=== PATIENT | male | born 1990 | race Caucasian/White ===

== ENCOUNTER → 2018-08-21 15:04 | Outpatient (CLI) | payer MEDICAID, SELFPAY ==
[2018-08-21 15:36] LABS: Bacteria 0 SEEN /hpf (None Seen); Mucous, Urine 0 SEEN /hpf (<or=2+); Red Blood Cells-Urine 0 SEEN /hpf (0-5); Squamous Epithelial Cells - UA 0 SEEN /hpf (0-5)
[2018-08-21 17:01] LABS: Color, Urine Yellow (Yellow); Glucose, Dipstick Normal (Normal); Ketone-Dipstick Negative (Negative); Leukocyte Esterase-Dipstick Negative /ul (Negative); Nitrite-Dipstick Negative (Negative); Occult Blood-Urine Negative /ul (Negative); Protein-Dipstick Negative (Negative); Specific Gravity, Urine 1.025 (1.002-1.030); Urine Bilirubin Dipstick Negative (Negative); Urine Clarity Clear (Clear); Urine Urobilinogen Normal (Normal)
[2018-08-21 17:33] LABS: White Blood Cells 0-5 SEEN /hpf (0-5)
[2018-08-21 17:46] LABS: HIV - WCH Non-Reactive (Nonreactive)
[2018-08-21 18:03] LABS: Chlamydia Trachomatis by PCR POSITIVE (Negative)
[2018-08-21 18:04] LABS: Probe Check PASS
[2018-08-22 07:44] LABS: Neisserai gonorrhoeae by PCR Negative (Negative); Sample Adequacy Control PASS; Specimen Processing Control PASS
[2018-08-23 11:19] LABS: HEPATITIS B SURFACE AG Negative (Negative); Hepatitis A AB, Total Negative (Negative); Hepatitis B Core AB IgM Negative (Negative); Hepatitis B Core Ab Total Negative (Negative); Hepatitis C Ab >11.0 s/co ratio (0.0-0.9)
[2018-08-23 11:26] LABS: Hep B Surface Antibodies Reactive (.)
[2018-08-23 11:48] LABS: Hepatitis A IgM Antibody Negative (Negative)
[2018-08-25 02:33] LABS: Rapid Plasmin Reagin (RPR) NONREACTIVE (NONREACTIVE)
== END ==
PROVIDERS: Family Provider Internal Medicine; PCP Internal Medicine; Referring Provider Nurse Practitioner Family; Visit Provider Nurse Practitioner Family
DX: Z72.51 High risk heterosexual behavior (principal); Z20.2 Contact with and (suspected) exposure to infections with a predominantly sexual mode of transmission; F19.10 Other psychoactive substance abuse, uncomplicated
CPT/HCPCS: 36415; 81001; 86592; 86703; 86704; 86705; 86706; 86708; 86709; 86803; 87340; 87491; 87591

== ENCOUNTER 2018-08-23 13:56 | Emergency (ER) | payer MEDICAID, SELFPAY ==
[2018-08-23 13:57] VITALS: BP 149/76; PULSE 95; RESP 16; TEMP 36.6; O2SAT 98; BMI 20.1
--- NOTE | 2018-08-23 14:29 | ED.VISSUMM ---
- ER Visit Summary Date of Service: 08/23/18 Chief Complaint: Rectal bleeding History of Present Illness: The patient is a 27 M who presents with rectal bleeding that began today. Patient thinks he has a hemorrhoid. Patient states he has been having bleeding with his bowel movements. Patient admits to some pain in the rectal area. Patient denies any nausea vomiting. Patient denies any abdominal pain. Patient denies any fevers or chills. Patient denies any other symptoms. Physical Examination: Vital signs are stable. Patient is afebrile. Patient is in no acute distress. Oral mucosa is pink and moist. Neck is supple. Trachea is midline. There is no JVD noted. Heart was regular rate and rhythm. Lungs are clear and equal bilateral. There is good respiratory effort noted. Abdomen is soft. Bowel sounds are normal. There is no tenderness noted. There is no guarding noted. Rectal exam showed an external hemorrhoid with some dried blood in the rectal area. There is no active bleeding noted. There is no tenderness noted. The remaining physical exam is within normal limits. Emergency Department Course and Treatment: Patient was given a prescription for Anusol HC suppositories. Patient was instructed to follow-up with his primary care physician in 5-7 days. Patient understood and was agreeable with the plan. All questions were answered. Disposition: Discharged home Impression: External hemorrhoid This note was generated with [employer] dictation software. It may contain incorrect words, spelling, and punctuation that were not noted in review of the chart prior to signing ED Disposition - Plan for ED Patient: Disposition: Home or Assisted Living Chief Complaint: Other, Pain/Inj Diagnosis: External hemorrhoid, bleeding Instructions: ED Hemorrhoids Prescriptions: Hydrocortisone [Anusol Hc] 25 mg RECTAL BID PRN PRN #10 suppos. PRN Reason: Hemorrhoids Referrals: Nighat Scott MD [Primary Care Provider] -
== END 2018-08-23 14:44 | disposition home or self-care (01) ==
PROVIDERS: Emergency Provider Emergency Medicine; Family Provider Internal Medicine; PCP Internal Medicine
DX: K64.4 Residual hemorrhoidal skin tags (principal); J02.9 Acute pharyngitis, unspecified; F17.200 Nicotine dependence, unspecified, uncomplicated
CPT/HCPCS: 99282

== ENCOUNTER 2018-09-19 04:56 | Emergency (ER) | payer MEDICAID, SELFPAY ==
[2018-09-19 04:58] VITALS: BP 131/79; PULSE 94; RESP 14; TEMP 36.6; O2SAT 95
[2018-09-19] MEDS: Naloxone 0.4 MG/ML Syringe IV (05:42)
--- NOTE | 2018-09-19 05:44 | ED.VISSUMM ---
- ER Visit Summary Date of Service: 09/19/18 Chief Complaint: Decreased level of consciousness History of Present Illness: The patient is a 27 M who is at [facility]. Patient reports that he went to a ball for [employer]. However, he was around good, sober people. He states that he did not use heroin that I know of. When asked what this means patient reports that he had a package of cigarettes delivered to him. He states that 5 of the cigarettes did not appear normal. He went out and smoked 1. Went back in and was talking to his roommate and next thing he knew he woke up with cough surrounding me. On review of symptoms patient complains of a sore throat 6 out of 10 severity and mild shortness of breath. States that he feels lightheaded. He does admit to feeling high on opiates. Physical Examination: Vitals: Stable. Afebrile. General: Appears intoxicated. Eyelids are half closed. He nods off during conversation. Pupils are small, but not pinpoint. Well-nourished and well-developed. Head: Normocephalic atraumatic. Neck: Supple, no lymphadenopathy. No JVD. Nontender. Cardiovascular: Regular rate and rhythm. No murmurs. Respiratory: No respiratory distress. Clear to auscultation bilaterally. Abdominal: Soft, nontender, nondistended, normal bowel sounds. No guarding, rebound, or peritoneal signs. Back: Nontender. Extremities: Nontender, no edema. Skin: Normal color, no rash. Neurologic: Alert and oriented ?3. Cranial nerves II through XII are intact. Normal strength and sensation. Psych: Normal affect. Test Results: [] Emergency Department Course and Treatment: Patient had an IV placed. He was given 0.4 mg of Narcan IV and is much more awake and alert. Treatment Plan: At this point the patient's episode is clearly from opiate use. I cannot determine whether this was intentional or not. He will be sent back to the [facility] with instructions to not use. Disposition: Discharged in improved condition. Impression: 1. Opiate abuse. This note was generated with [employer] dictation software. It may contain incorrect words, spelling, and punctuation that were not noted in review of the chart prior to signing ED Disposition - Plan for ED Patient: Chief Complaint: General Illness Instructions: ED Narcotic Abuse Referrals: Care Physician,No Primary [Primary Care Provider] -
[2018-09-19] MEDS: 0.9% Normal Saline 1,000 ML 1000 ML IV (05:45)
--- NOTE | 2018-09-19 05:47 | ED.DCSUM_ITS ---
- ER Visit Summary Date of Service: 09/19/18 Chief Complaint: Decreased level of consciousness History of Present Illness: The patient is a 27 M who is at [facility]. Patient reports that he went to a ball for [employer]. However, he was around good, sober people. He states that he did not use heroin that I know of. When asked what this means patient reports that he had a package of cigarettes delivered to him. He states that 5 of the cigarettes did not appear normal. He went out and smoked 1. Went back in and was talking to his roommate and next thing he knew he woke up with cough surrounding me. On review of symptoms patient complains of a sore throat 6 out of 10 severity and mild shortness of breath. States that he feels lightheaded. He does admit to feeling high on opiates. Physical Examination: Vitals: Stable. Afebrile. General: Appears intoxicated. Eyelids are half closed. He nods off during conversation. Pupils are small, but not pinpoint. Well-nourished and well- developed. Head: Normocephalic atraumatic. Neck: Supple, no lymphadenopathy. No JVD. Nontender. Cardiovascular: Regular rate and rhythm. No murmurs. Respiratory: No respiratory distress. Clear to auscultation bilaterally. Abdominal: Soft, nontender, nondistended, normal bowel sounds. No guarding, rebound, or peritoneal signs. Back: Nontender. Extremities: Nontender, no edema. Skin: Normal color, no rash. Neurologic: Alert and oriented ?3. Cranial nerves II through XII are intact. Normal strength and sensation. Psych: Normal affect. Test Results: [] Emergency Department Course and Treatment: Patient had an IV placed. He was given 0.4 mg of Narcan IV and is much more awake and alert. Treatment Plan: At this point the patient's episode is clearly from opiate use. I cannot determine whether this was intentional or not. He will be sent back to the [facility] with instructions to not use. Disposition: Discharged in improved condition. Impression: 1. Opiate abuse. This note was generated with [employer] dictation software. It may contain incorrect words, spelling, and punctuation that were not noted in review of the chart prior to signing ED Disposition - Plan for ED Patient: Chief Complaint: General Illness Instructions: ED Narcotic Abuse Referrals: Care Physician,No Primary [Primary Care Provider] -
[2018-09-19 06:36] VITALS: BP 118/69; PULSE 89; RESP 18; O2SAT 99
[2018-09-19] MEDS: Ondansetron 4 MG/2 ML Vial IV (06:55)
[2018-09-19 07:08] VITALS: BP 123/56; PULSE 91; RESP 15; O2SAT 99
== END 2018-09-19 07:18 | disposition home or self-care (01) ==
LOC: ED 05:42
PROVIDERS: Emergency Provider Emergency Medicine
DX: T40.601A Poisoning by unspecified narcotics, accidental (unintentional), initial encounter (principal); Y92.9 Unspecified place or not applicable; Z86.19 Personal history of other infectious and parasitic diseases; F17.200 Nicotine dependence, unspecified, uncomplicated
CPT/HCPCS: 96361; 96374; 96375; 99285; J7030; J2310; J2405

== ENCOUNTER 2021-03-14 20:05 | Observation (INO) | payer MEDICAID, SELFPAY ==
[2021-03-14 20:06] VITALS: BP 122/91; PULSE 94; RESP 15; TEMP 35.7; O2SAT 97; BMI 23.2
--- NOTE | 2021-03-14 20:33 | EX.ED.SAOD ---
HPI History of Present Illness Chief Complaint: Substance Abuse Narrative Narrative: 30-year-old male with history of substance abuse and states currently he does methamphetamine and heroin. Last use was 2 hours ago. He states he has been doing this for years. His last detox was at [facility]. Patient has no symptoms currently. He wishes to be admitted for detox. [facility] Medical History Hepatitis C History of drug abuse Home Medications NK 03/14/21 [History Last Taken Unknown] Allergy/AdvReac Type Severity Reaction Status Date / Time No Known Allergies Allergy Verified 03/14/21 20:08 Family History Mother Anxiety Alcoholism Arthritis Depression Social History Smoking Status: Current every day smoker tobacco type: cigarettes substance use type: marijuana, crack/cocaine, heroin and methamphetamine frequency: daily ROS ROS ED Constitutional Constitutional ED: Denies chills, fever(s) or subjective Eyes Eyes: Denies blurry vision or change in vision ENT ENT ED: Denies ear pain, rhinorrhea or sore throat Cardiovascular Cardiovascular: Denies chest pain or palpitations Respiratory/Chest Respiratory/Chest: Denies cough, dyspnea or sputum Gastrointestinal Gastrointestinal: Denies abdominal pain, nausea or vomiting Genitourinary Genitourinary ED: Denies dysuria or urinary frequency Musculoskeletal Musculoskeletal: Denies arthralgias or myalgias Integumentary Denies abscess or rash Neurologic Neurologic: Denies headache(s), paresthesias or weakness Psychiatric Psychiatric: Denies anxiety or depression EXAM Physical Exam Const Vital Signs: 03/14/21 20:06 Temperature 96.3 F L Temperature Source Temporal Pulse Rate 94 Respiratory Rate 15 Blood Pressure 122/91 H Blood Pressure Mean 101 Pulse Ox 97 Oxygen Delivery Method Room Air General Appearance ED: NAD HEENT Reports moist mucous membranes atraumatic Eyes PERRL and EOMs intact bilaterally General Eye ED: Negative for scleral icterus Resp normal respiratory effort and clear to auscultation bilaterally Cardio regular rate and regular rhythm Neuro oriented x3 Sensorium / Orientation: alert and oriented to person Psych mental status grossly normal and thought process normal Skin Lesions: no lesions Rashes: no rashes MDM MDM MDM Narrative Medical decision making narrative: Patient presenting for detox. His lab work-up is unremarkable. Urine drug screen is positive for opioids, amphetamines, cocaine, cannabinoids. Patient required no medication in the ED. He has been stable. Discussed with hospitalist he was in stabilized condition for detox. Impression: 1. Opioid abuse 2. Cocaine abuse 3. Methamphetamine abuse Lab Data Attestation: I reviewed the patient's lab results. Labs: Laboratory Results - last 24 hr 03/14/21 03/14/21 03/14/21 20:18 20:57 20:57 WBC 6.4 RBC 4.93 Hgb 13.9 Hct 42.5 MCV 86.2 MCH 28.2 MCHC 32.7 RDW Std Deviation 42.1 RDW Coeff of Shaka 13.5 Plt Count 145 L MPV 10.5 Immature Gran % (Auto) 0.200 Neut % (Auto) 66.5 Lymph % (Auto) 21.7 Wharton % (Auto) 10.8 H Eos % (Auto) 0.5 Baso % (Auto) 0.3 Absolute Neuts (auto) 4.3 Absolute Lymphs (auto) 1.39 Nucleated RBC % 0 Platelet Estimate ADEQUATE RBC Morphology N CHROM Anisocytosis RARE Sodium 140 Potassium 3.4 L Chloride 106 Carbon Dioxide 27.0 Anion Gap 7 BUN 12 Creatinine 0.90 Estim Creat Clear Calc 130.15 Est GFR (MDRD) Af Amer 128 Est GFR (MDRD) Non-Af 106 BUN/Creatinine Ratio 13.3 Glucose 103 Calcium 8.5 Total Bilirubin 0.50 AST 40 H ALT 76 H Alkaline Phosphatase 159 H Total Protein 7.2 Albumin 3.5 Globulin 3.7 Albumin/Globulin Ratio 0.9 Urine Opiates Screen POSITIVE H Urine Methadone Screen NEGATIVE Ur Barbiturates Screen NEGATIVE Ur Phencyclidine Scrn NEGATIVE Ur Amphetamines Screen POSITIVE H U Methamphetamin-MDMA POSITIVE H U Benzodiazepines Scrn NEGATIVE Urine Cocaine Screen POSITIVE H U Cannabinoids Screen POSITIVE H Ur Drug Screen Comment Ethyl Alcohol 03/14/21 21:14 WBC RBC Hgb Hct MCV MCH MCHC RDW Std Deviation RDW Coeff of Shaka Plt Count MPV Immature Gran % (Auto) Neut % (Auto) Lymph % (Auto) Wharton % (Auto) Eos % (Auto) Baso % (Auto) Absolute Neuts (auto) Absolute Lymphs (auto) Nucleated RBC % Platelet Estimate RBC Morphology Anisocytosis Sodium Potassium Chloride Carbon Dioxide Anion Gap BUN Creatinine Estim Creat Clear Calc Est GFR (MDRD) Af Amer Est GFR (MDRD) Non-Af BUN/Creatinine Ratio Glucose Calcium Total Bilirubin AST ALT Alkaline Phosphatase Total Protein Albumin Globulin Albumin/Globulin Ratio Urine Opiates Screen Urine Methadone Screen Ur Barbiturates Screen Ur Phencyclidine Scrn Ur Amphetamines Screen U Methamphetamin-MDMA U Benzodiazepines Scrn Urine Cocaine Screen U Cannabinoids Screen Ur Drug Screen Comment Ethyl Alcohol < 3.0 Discharge Plan Disposition Disposition: Acute Care Hospital [facility] Discharge Date/Time: 03/14/21 23:33
[2021-03-14 21:10] LABS: Absolute Lymphocyte Count 1.39 X10^3/uL (0.83-4.51); Absolute Neutrophil Count 4.3 X10^3/uL (2.0-7.7); Basophil# 0.02 X10^3/uL; Basophil% 0.3 % (0-1); Differential Indicated SCAN CRITERIA MET; Eosinophil# 0.03 X10^3/uL; Eosinophils% 0.5 % (0-5); Hematocrit 42.5 % (40-54); Hemoglobin 13.9 g/dL (13.0-16.5); Lymphocyte # 1.39 X10^3/ul (0.83-4.51); Lymphocyte % 21.7 % (19-41); Mean Corp Hgb Conc 32.7 g/dL (32-36); Mean Corpuscular Hgb 28.2 pg (27.0-32.0); Mean Corpuscular Volume 86.2 fL (80-94); Mean Platelet Vol. 10.5 fl (6.2-12.0); Monocyte# 0.69 X10^3/uL; Monocyte% 10.8 % (0-10); NRBC Flagged by Analyzer 0 % (0-5); Neutrophil # 4.26 X10^3/uL (2.7-7.7); Neutrophil % 66.5 % (47-70); POSITIVE COUNT YES; Platelet Count 145 K/mm3 (150-450); RBC Distribution Width CV 13.5 % (11.6-14.6); RBC Distribution Width SD 42.1 fl (35.1-43.9); Red Blood Count 4.93 M/mm3 (4.6-6.2); White Blood Count 6.4 K/mm3 (4.4-11.0)
[2021-03-14 21:22] LABS: Albumin, Serum 3.5 g/dL (3.2-5.0); BUN 12 mg/dL (7-18); BUN/Creat Ratio 13.3 RATIO (10-20); EST Glomerular Filtration Rate 106 mL/min (>60); Est Glom Filt Rate - Afr Amer 128 mL/min (>60); Estimated Creatinine Clearance 130.15 ml/min; Globulin 3.7 g/dL (2.2-4.2); Glucose 103 mg/dL (74-106); Protein, Total 7.2 g/dL (6.4-8.2)
[2021-03-14 21:23] LABS: ALB/GLOB Ratio 0.9 RATIO (0.9-2.4); AST(SGOT) 40 U/L (15-37); Alanine Aminotransfer ALT/SGPT 76 U/L (16-61); Alkaline Phosphatase 159 U/L (45-117); Anion Gap 7 (5-15); Calcium,Total 8.5 mg/dL (8.5-10.1); Chloride 106 mmol/L (98-107); Potassium 3.4 mmol/L (3.5-5.1); Sodium Level 140 mmol/L (136-145)
[2021-03-14 21:32] LABS: Amphetamine Urine VISTA POSITIVE (<1000 ng/mL); Barbiturate Urine VISTA NEGATIVE (< 200 ng/mL); Benzodiazepine Urine VISTA NEGATIVE (< 200 ng/mL); Cocaine Urine VISTA POSITIVE (< 300 ng/mL); Ecstacy Urine VISTA POSITIVE (< 500 ng/mL); Methadone Urine VISTA NEGATIVE (< 300 ng/mL); PCP Urine VISTA NEGATIVE (< 25 ng/mL); THC Urine VISTA POSITIVE (< 50 ng/mL); Vista UDS pH Range 5
[2021-03-14 21:32] LABS: Anisocytosis RARE; Platelet Estimate ADEQUATE (ADEQ); Red Cell Morphology N CHROM NORMAL (NORM C&C)
[2021-03-14 21:49] LABS: Alcohol, Blood (Medical)-Serum < 3.0 mg/dL
--- NOTE | 2021-03-14 23:08 | HP.PCM_ITS ---
Documented by User: Gricelda Vazquez NP-C 03/14/21 23:15 HPI - General General Date of Admission: 03/14/21 HPI Narrative CHERYL TALBERT, is a 30 M who presents with a desire to detox from heroin and methamphetamines. Patient states that he also uses marijuana daily. Patient reports a daily intravenous usage of 1 g of both heroin and methamphetamine. Patient also reports smoking tobacco. Patient is alert and oriented but lethargic, states last use was approximately 5 hours ago. [facility] Medical History Hepatitis C History of drug abuse Home Medications NK 03/14/21 [History Last Taken Unknown] Allergy/AdvReac Type Severity Reaction Status Date / Time No Known Allergies Allergy Verified 03/14/21 20:08 Family History Mother Anxiety Alcoholism Arthritis Depression Social History Smoking Status: Current every day smoker tobacco type: cigarettes substance use type: marijuana, crack/cocaine, heroin and methamphetamine frequency: daily ROS Constitutional Constitutional: Reports chills; Denies anorexia, fatigue or weakness Cardiovascular Cardiovascular: Denies chest pain, edema or palpitations Respiratory/Chest Respiratory/Chest: Denies cough, shortness of breath at rest or shortness of breath with exertion Gastrointestinal Gastrointestinal: Denies abdominal pain, constipation, diarrhea, nausea or vomiting Genitourinary Genitourinary: Denies dysuria Musculoskeletal Musculoskeletal: Denies back pain, extremity pain, joint pain or joint stiffness Integumentary Integumentary: Denies dry skin Neurologic Neurologic: Denies abnormal gait, abnormal speech, confusion or focal weakness Psychiatric Psychiatric: Denies anxiety or depression Endocrine Endocrinology: Denies change in body appearance Hematologic/Lymphatic Hematologic/Lymphatic: Denies easy bleeding or easy bruising Vital Signs Vital Signs Vital Signs: 03/14/21 20:06 Temperature 96.3 F L Temperature Source Temporal Pulse Rate 94 Respiratory Rate 15 Blood Pressure 122/91 H Blood Pressure Mean 101 Pulse Ox 97 Oxygen Delivery Method Room Air Weight Weight: 166 lb 10.711 oz Body Mass Index (BMI) 23.2 Physical Exam Const oriented x3 General Appearance: cooperative Orientation / Consciousness: lethargic HEENT normocephalic and head/scalp atraumatic Eyes conjunctivae normal and no scleral icterus Neck no lymphadenopathy, supple and no JVD General: trachea midline Resp normal respiratory effort, normal air movement and clear to auscultation bilat erally Cardio regular rate, regular rhythm, S1 normal heart sound and S2 normal heart sound GI normal to inspection, nondistended, normoactive bowel sounds, soft to palpation and non-tender Extremity normal capillary refill and no clubbing, cyanosis or edema General Extremity: no tenderness to palpation of joints or extremities Skin General Skin Exam: no breakdown and turgor normal Lesions: no lesions Rashes: no rashes Neuro no focal motor deficits and no sensory deficits noted Speech: speech normal Motor Exam: strength 5/5 throughout Psych thought process normal and cooperative Appearance: appropriate Results Lab / Micro Data Result Diagrams: 03/14/21 20:57 03/14/21 20:57 Labs: Laboratory Results - last 24 hr 03/14/21 03/14/21 03/14/21 20:18 20:57 20:57 WBC 6.4 RBC 4.93 Hgb 13.9 Hct 42.5 MCV 86.2 MCH 28.2 MCHC 32.7 RDW Std Deviation 42.1 RDW Coeff of Shaka 13.5 Plt Count 145 L MPV 10.5 Immature Gran % (Auto) 0.200 Neut % (Auto) 66.5 Lymph % (Auto) 21.7 Blair % (Auto) 10.8 H Eos % (Auto) 0.5 Baso % (Auto) 0.3 Absolute Neuts (auto) 4.3 Absolute Lymphs (auto) 1.39 Nucleated RBC % 0 Platelet Estimate ADEQUATE RBC Morphology N CHROM Anisocytosis RARE Sodium 140 Potassium 3.4 L Chloride 106 Carbon Dioxide 27.0 Anion Gap 7 BUN 12 Creatinine 0.90 Estim Creat Clear Calc 130.15 Est GFR (MDRD) Af Amer 128 Est GFR (MDRD) Non-Af 106 BUN/Creatinine Ratio 13.3 Glucose 103 Calcium 8.5 Total Bilirubin 0.50 AST 40 H ALT 76 H Alkaline Phosphatase 159 H Total Protein 7.2 Albumin 3.5 Globulin 3.7 Albumin/Globulin Ratio 0.9 Urine Opiates Screen POSITIVE H Urine Methadone Screen NEGATIVE Ur Barbiturates Screen NEGATIVE Ur Phencyclidine Scrn NEGATIVE Ur Amphetamines Screen POSITIVE H U Methamphetamin-MDMA POSITIVE H U Benzodiazepines Scrn NEGATIVE Urine Cocaine Screen POSITIVE H U Cannabinoids Screen POSITIVE H Ur Drug Screen Comment Ethyl Alcohol 03/14/21 21:14 WBC RBC Hgb Hct MCV MCH MCHC RDW Std Deviation RDW Coeff of Shaka Plt Count MPV Immature Gran % (Auto) Neut % (Auto) Lymph % (Auto) Blair % (Auto) Eos % (Auto) Baso % (Auto) Absolute Neuts (auto) Absolute Lymphs (auto) Nucleated RBC % Platelet Estimate RBC Morphology Anisocytosis Sodium Potassium Chloride Carbon Dioxide Anion Gap BUN Creatinine Estim Creat Clear Calc Est GFR (MDRD) Af Amer Est GFR (MDRD) Non-Af BUN/Creatinine Ratio Glucose Calcium Total Bilirubin AST ALT Alkaline Phosphatase Total Protein Albumin Globulin Albumin/Globulin Ratio Urine Opiates Screen Urine Methadone Screen Ur Barbiturates Screen Ur Phencyclidine Scrn Ur Amphetamines Screen U Methamphetamin-MDMA U Benzodiazepines Scrn Urine Cocaine Screen U Cannabinoids Screen Ur Drug Screen Comment Ethyl Alcohol < 3.0 Assessment & Plan Assessment/Plan (1) Opiate abuse, continuous: (2) Methamphetamine abuse: (3) Nicotine abuse: (4) Marijuana abuse: PLAN: 1. Opiate abuse -Admit to [facility] as part of the rape program -Buprenorphine taper ordered per protocol along with supportive medications for withdrawal symptoms -Vital signs per protocol -Regular diet -Case management consulted for coordination with [facility] for outpatient follow-up 2. Methamphetamine abuse -See #1 3. Hypokalemia -Potassium chloride 40 mEq p.o. x1 ordered 4. Marijuana abuse 5. Nicotine abuse -NicoDerm patch ordered DVT prophylaxis-no pharmacological prophylaxis indicated This patient was seen by MAITE Nur under the supervision of Dr. Salamanca. Documented by User: Dr. Venkat Salamanca MD 03/15/21 00:17 HPI - General General Date of Admission: 03/14/21 [facility] Medical History Hepatitis C History of drug abuse Home Medications NK 03/14/21 [History Last Taken Unknown] Allergy/AdvReac Type Severity Reaction Status Date / Time No Known Allergies Allergy Verified 03/14/21 20:08 Family History Mother Anxiety Alcoholism Arthritis Depression Social History Smoking Status: Current every day smoker tobacco type: cigarettes substance use type: marijuana, crack/cocaine, heroin and methamphetamine frequency: daily Results Lab / Micro Data Result Diagrams: 03/14/21 20:57 03/14/21 20:57 Charges/Coding Addendum Addendum: Hospitalist note: I am seeing this patient in conjunction with Gricelda Vazquez. I independently seen and examined the patient. History and physical, laboratory data and imaging studies reviewed and I concur with above admission and treatment plan. Patient presented to the emergency room requesting admission for acute opiate withdrawal for medical stabilization. He has been using IV heroin as well as methamphetamines and occasionally, he used marijuana. He complains of body aches and pains, not feeling well with malaise as well as restlessness. He denied abdominal pain, cramps, nausea or vomiting. In the emergency department, his vital signs were stable. Routine blood work was remarkable for potassium of 3.4, otherwise normal. LFT revealed slight elevated liver transaminases. Urine drug screen is positive for opioids, vitamins, methamphetamines, cocaine and cannabinoids. Blood alcohol level was less than 3. He is being admitted for acute opioid withdrawal for medical stabilization. - Physical Exam General: Alert, Oriented x3, Cooperative, No apparent distress. HEENT: Atraumatic, PERRLA, EOMI. Neck: Supple, No JVD, Negative Carotid Bruits, Trachea Midline, Thyroid Normal. Lungs: Clear to auscultation, Normal air movement, No rhonchi, No wheeze, No rales. Cardiovascular: Regular rate, Regular Rhythm, Normal S1, Normal S2, PMI Normal. Abdomen: Bowel Sounds Present, Soft, Non Tender, Non-Distended, No Hepato-splenomegaly. Extremities: No clubbing, No cyanosis, No edema Skin: No rashes, No breakdown Neurological: Cranial nerves are intact, neuro grossly intact Vital Signs are stable. Assessment and plan: #1 acute opiate withdrawal: Admit to MedSurg floor, initiate opioid withdrawal protocol with Subutex taper, as needed Catapres, Bentyl, gabapentin, Vistaril, Imodium, methocarbamol, Zofran and trazodone, consult [facility] program. #2 elevated liver transaminases: In the setting of IV drug user. Will check hepatitis serology panel. #3 other chronic medical problems: Stable, continue current medications as above . This note was generated with [employer] dictation software. It may contain incorrect words, spelling, and punctuation that were not noted in checking the note before signing. Visit Charges Inpatient E&M: 27613 Init Hosp L2
[2021-03-14 23:10] VITALS: BP 98/60; PULSE 68; RESP 16; TEMP 37.1; O2SAT 97
[2021-03-14 23:42] VITALS: BP 129/67; PULSE 78; RESP 16; TEMP 37; O2SAT 98
[2021-03-14 23:45] VITALS: BMI 16.5
[2021-03-15] MEDS: Potassium Chloride Oral Tablet 20 MEQ 40 MEQ PO (00:44)
[2021-03-15 04:00] VITALS: BP 108/72; PULSE 74; RESP 17; TEMP 36.8; O2SAT 97
[2021-03-15 08:18] VITALS: BP 124/85; PULSE 78; RESP 18; TEMP 36.4; O2SAT 99
[2021-03-15] MEDS: Buprenorphine HCl 2 MG TAB.SUBL SL ×3 (08:20→23:24)
[2021-03-15] MEDS: Dicyclomine 10 MG Capsule 20 MG PO (11:25)
[2021-03-15] MEDS: hydrOXYzine PAM 25 MG Capsule 50 MG PO (11:26)
--- NOTE | 2021-03-15 12:02 | NT.THERAPY_ITS ---
Medical Nutrition Therapy - History Nutrition Services has been consulted to:: Manage nutrient details of diet order Current diet/nutrition support order:: Regular- 3 snacks per day. Ensure Enlive 120 ml 4x/day - Anthropometric Measurements Height:: 5 ft 11 in Weight:: 53.9 kg Body Mass Index (BMI):: 16.5 - Relevant Labs Relevant Labs:: Plt Count 145 K/mm3 (150-450) L 03/14/21 20:57 Stanly % (Auto) 10.8 % (0-10) H 03/14/21 20:57 Potassium 3.4 mmol/L (3.5-5.1) L 03/14/21 20:57 AST 40 U/L (15-37) H 03/14/21 20:57 ALT 76 U/L (16-61) H 03/14/21 20:57 Alkaline Phosphatase 159 U/L (45-117) H 03/14/21 20:57 - Assessment Food and Nutrient Intake: Reports wt hx When I get high my weight is 120# but when I'm sober I'm 193#. No wt hx per EMR- CBW 118.8 lbs. States When I get high I don't eat. I usually eat like one or two times per day, something like cereal. Denies chew/swallowing difficulty, N/V/D/C. Nutrition Focused Physical Exam: severe temporal scooping/depression, severe orbital region hollow look/depression, severe clavicle bone protrusion, moderate interosseous muscle of dorsal hand depression. - Nutrition Diagnosis: Clinical Problem Acute Disease or Injury Related Malnutrition Clinical Problem - Etiology: Severe malnutrition in the context of social/behavioral circumstances related to inadequate oral intake Clinical Problem - Signs/Symptoms: as evidenced by pt consuming </=50% energy intake compared to estimated needs as pt reports will not eat when using drugs, nutrition focused physical exam severe temporal scooping/depression, severe orbital region hollow look/depression, severe clavicle bone protrusion, moderate interosseous muscle of dorsal hand depression, and BMI 16.6. Status: Active Problem - Protein Calorie Malnutrition Evidence of Malnutrition Exists: Yes Severe Protein Calorie Malnutrition:: Social/Behavioral/Environmental - Nutrition Intervention Nutrition Prescription: 1998-6755 calories (30 calories/kg). 55-65 grams protein (1-1.2 g/kg). 6238-8603 ml fluid (30 ml/kg) - Food / Nutrient Delivery Interventions Nutrition support ordered as / adjusted to:: Continue [facility] - MNT Monitoring Active Nutrition Patient: Yes Nutrition Status: Requires Follow Up 3-5 Days
[2021-03-15 12:05] VITALS: BMI 16.5
[2021-03-15 13:00] VITALS: BP 132/94; PULSE 78; RESP 18; TEMP 37.1; O2SAT 99
--- NOTE | 2021-03-15 13:03 | PCM.PN.HOSP ---
Subjective Subjective Patient was admitted for opiate detox. He is complaining of generalized body aches and chills today. He denies any current diarrhea. He states he would like to talk to his mother but we explained that he is not able to do that right now given his admission for detox with regards to the parameters he agreed to prior to admission. She is also admitted for detox as well. Objective Data Objective Data Vital Signs: Vital Signs Temp Pulse Resp BP Pulse Ox 97.5 F L 78 18 124/85 H 99 03/15/21 08:18 03/15/21 08:18 03/15/21 08:18 03/15/21 08:18 03/15/21 08:18 Oxygen Delivery Method Room Air Weight: 53.9 kg Body Mass Index (BMI) 16.5 Intake & Output: Intake and Output for Last 24 Hours 03/13/21 03/14/21 03/15/21 23:59 23:59 23:59 Intake Total 480 / 480 Output Total 0 / 0 Balance 480 / 480 Lab / Micro Data Result Diagrams: 03/14/21 20:57 03/14/21 20:57 Labs: Laboratory Results - last 24 hr 03/14/21 03/14/21 03/14/21 20:18 20:57 20:57 WBC 6.4 RBC 4.93 Hgb 13.9 Hct 42.5 MCV 86.2 MCH 28.2 MCHC 32.7 RDW Std Deviation 42.1 RDW Coeff of Shaka 13.5 Plt Count 145 L MPV 10.5 Immature Gran % (Auto) 0.200 Neut % (Auto) 66.5 Lymph % (Auto) 21.7 [place] % (Auto) 10.8 H Eos % (Auto) 0.5 Baso % (Auto) 0.3 Absolute Neuts (auto) 4.3 Absolute Lymphs (auto) 1.39 Nucleated RBC % 0 Platelet Estimate ADEQUATE RBC Morphology N CHROM Anisocytosis RARE Sodium 140 Potassium 3.4 L Chloride 106 Carbon Dioxide 27.0 Anion Gap 7 BUN 12 Creatinine 0.90 Estim Creat Clear Calc 130.15 Est GFR (MDRD) Af Amer 128 Est GFR (MDRD) Non-Af 106 BUN/Creatinine Ratio 13.3 Glucose 103 Calcium 8.5 Total Bilirubin 0.50 AST 40 H ALT 76 H Alkaline Phosphatase 159 H Total Protein 7.2 Albumin 3.5 Globulin 3.7 Albumin/Globulin Ratio 0.9 Urine Opiates Screen POSITIVE H Urine Methadone Screen NEGATIVE Ur Barbiturates Screen NEGATIVE Ur Phencyclidine Scrn NEGATIVE Ur Amphetamines Screen POSITIVE H U Methamphetamin-MDMA POSITIVE H U Benzodiazepines Scrn NEGATIVE Urine Cocaine Screen POSITIVE H U Cannabinoids Screen POSITIVE H Ur Drug Screen Comment Ethyl Alcohol 03/14/21 21:14 WBC RBC Hgb Hct MCV MCH MCHC RDW Std Deviation RDW Coeff of Shaka Plt Count MPV Immature Gran % (Auto) Neut % (Auto) Lymph % (Auto) [place] % (Auto) Eos % (Auto) Baso % (Auto) Absolute Neuts (auto) Absolute Lymphs (auto) Nucleated RBC % Platelet Estimate RBC Morphology Anisocytosis Sodium Potassium Chloride Carbon Dioxide Anion Gap BUN Creatinine Estim Creat Clear Calc Est GFR (MDRD) Af Amer Est GFR (MDRD) Non-Af BUN/Creatinine Ratio Glucose Calcium Total Bilirubin AST ALT Alkaline Phosphatase Total Protein Albumin Globulin Albumin/Globulin Ratio Urine Opiates Screen Urine Methadone Screen Ur Barbiturates Screen Ur Phencyclidine Scrn Ur Amphetamines Screen U Methamphetamin-MDMA U Benzodiazepines Scrn Urine Cocaine Screen U Cannabinoids Screen Ur Drug Screen Comment Ethyl Alcohol < 3.0 Physical Exam Const alert, oriented x3 and no apparent distress Constitutional Narrative: Thin white male lying in bed, multiple tattoos, appears comfortable, nontoxic Exam Limitations: no limitations HEENT head/scalp atraumatic Head and Scalp: normocephalic Resp normal respiratory effort, no retractions, no use of accessory muscles and clear to auscultation bilaterally Cardio regular rate, regular rhythm, S1 normal heart sound, S2 normal heart sound, no murmurs, no rub, no gallops, no clicks and no JVD GI normal to inspection, nondistended, normoactive bowel sounds, soft to palpation, non-tender and non-distended Extremity normal to inspection and no clubbing, cyanosis or edema Peripheral Pulses: Yes pulses 2+ throughout Neuro oriented x3, moves all extremities and no focal motor deficits Sensorium / Orientation: awake and alert Speech: speech normal Psych Psych Narrative: Affect is flat Assessment & Plan Assessment/Plan (1) Opiate abuse, continuous: (2) Nicotine abuse: (3) Hepatitis C: PLAN: Acute opiate withdrawal -Suboxone taper -Supportive medications -Check HIV status -Patient with history of hepatitis C -180 consultation Thrombocytopenia -May be related to his hepatitis status -Count on admission was 145 -Unsure of baseline Hepatitis C -Transaminases are elevated -Mild thrombocytopenia -Patient will need to remain clean and follow-up as an outpatient for treatment Polysubstance abuse -Tox screen was positive for opiates, amphetamines, cocaine, and THC -Alcohol level is negative History of tobacco abuse -Recommend cessation -Nicotine patch DVT prophylaxis -Early ambulation protocol
[2021-03-15 16:57] VITALS: BP 112/66; PULSE 77; RESP 16; TEMP 36.9; O2SAT 99
[2021-03-15 20:30] VITALS: BP 114/74; PULSE 66; RESP 17; TEMP 37; O2SAT 100
[2021-03-15] MEDS: traZODone 100 MG Tablet PO (22:14)
[2021-03-15 23:22] VITALS: BP 112/69; PULSE 64; RESP 17; TEMP 36.7; O2SAT 98
[2021-03-15] MEDS: cloNIDine HCl 0.1 MG Tablet PO (23:27)
[2021-03-16 05:00] VITALS: BP 105/60; PULSE 69; RESP 16; TEMP 36.8; O2SAT 97
[2021-03-16] MEDS: Buprenorphine HCl 2 MG TAB.SUBL SL (06:38)
--- NOTE | 2021-03-16 09:28 | ADDICTION ---
This television writer met with PT to conduct ASAM, MSE, DUDIT assessments and to plan for d/c. All assessments completed/d/c plan completed, faxed to [facility] and placed in PT's chart. PT to d/c to his mother's home and plans to attend a diagnostic assessment/admit to RES treatment at [facility] on 03/17/21. PT amiable to plan.
--- NOTE | 2021-03-16 09:59 | ADDICTION ---
This creative writer met with PT to finalize d/c plan. PT to attend an assessment at [facility] on 03/19/21 @ 5pm. PT to d/c to home.
--- NOTE | 2021-03-16 10:44 | PCM.DC ---
Discharge Instructions Diet Discharge Diet: No restrictions Activity Discharge Activity: Return to Normal Activity and May Not Drive Weight Bearing Status: Weight bearing as tolerated Dressing / Incision Call your doctor if you observe: Fever of 101 or Higher, Coldness, Increased Pain, Numbness or Tingling, Change in Color, Inability to urinate, Inability to have a bowel movement, Shortness of breath, Dizziness, Fainting spells, Swelling in the ankles, Chest pain, Prolonged hiccupping, Increased palpitations (irregular heartbeat), Calf discomfort and Uncontrolled pain Follow Up Care Test Results: Test results from this visit will be discussed in further detail at your follow-up appointment, if applicable. Discharge Plan Admission Admit Date/Time: 03/14/21 23:04 Primary Reason for Your Visit: Acute OPOID withdrawal syndrome Attending Provider: Bryce Unger Primary Care Provider: Care Physician,No Primary Discharge Orders/Prescriptions Prescriptions: No Action NK RF: 0 Referrals / Follow Up: Care Physician,No Primary [Primary Care Provider] - Disposition Disposition (needs filled in before D/C Order can be placed): Home, Self Care
--- NOTE | 2021-03-16 10:47 | DS.PCM_ITS ---
Providers Date of Admission: 03/14/21 Primary Care Physician: No Primary Care Phys Reason For Visit: ACUTE OPIOID WITHDRAWL Diagnosis Discharge Diagnosis (1) Opiate abuse, continuous: Status: Acute Code(s): F11.10 - Opioid abuse, uncomplicated (2) Nicotine abuse: Status: Acute Code(s): Z72.0 - Tobacco use (3) Hepatitis C: Status: Acute Code(s): B19.20 - Unspecified viral hepatitis C without hepatic coma Medications at Discharge Home Medications NK 03/14/21 Hospital Course Summary of Care Provided Hospital Course: This is a 30-year-old gentleman admitted for acute opioid withdrawal syndrome mainly generalized body aches and chills. Patient uses 1 g of both heroin and methamphetamine intravenously. Also reports of smoking. He was lethargic in the ER. The patient was admitted on [facility] floor. On buprenorphine based other supportive medications for opioid withdrawal syndrome. 180 cinema or theatre manager consult was done. Patient also has elevated transaminases and hepatitis C positive. ALT 76, AST 40, alkaline phosphatase 159. Mild thrombocytopenia, platelet count 145,000. History of cigarette smoking. Discharge medication reconciliation done. Discharge follow-up instructions completed. Discharge process discussed with the patient and all questions were answered to patient's satisfaction. Total time spent, exact 35 minutes on discharge meds reconciliation, examination, coordination of care with nurses and ancillary staff, review of imaging and blood test and discussion with the patient on follow-up instructions Physical Exam Narrative Seen and examined. Patient uses IV heroine. Also uses methamphetamine cocaine and cannabis. Physical exam General: Alert, Oriented x3, Cooperative, BMI 16.6 kg/m? moderate protein calorie malnutrition HEENT: Atraumatic, PERRLA, EOMI, Normocephalic Oral: No Gingival or Mucosal Lesions/ Ulcerations Neck: Supple, No JVD, Negative Carotid Bruits Lungs: Air entry equal in bilateral lung bases. No crepitation/rhonchi Cardiovascular: Regular rate, Regular Rhythm, Normal S1, Normal S2, No murmurs Abdomen: Bowel Sounds Present, Soft, Non Tender, Non-Distended : No renal angle tenderness. No suprapubic tenderness. Extremities: No edema, Capillary Refill Less than 3 Seconds Skin: No rashes, No breakdown Musculoskeletal: No Tenderness to Palpation of Joints or Extremities Neurological: Cranial nerves II-XII grossly intact, Deep Tendon Reflexes 2+/4 and Symmetrical, Neuro grossly intact Psych/Mental Status: Normal Affect, Appropriate. Weight / BMI Weight Weight: 118 lb 13.266 oz Body Mass Index (BMI) 16.5 ABG / Lab / Microbiology Data Result Diagrams: 03/14/21 20:57 03/14/21 20:57 D/C Instructions Discharge Diet: No restrictions Weight Bearing Status: Weight bearing as tolerated Call your doctor if you observe: Fever of 101 or Higher, Coldness, Increased Pain, Numbness or Tingling, Change in Color, Inability to urinate, Inability to have a bowel movement, Shortness of breath, Dizziness, Fainting spells, Swelling in the ankles, Chest pain, Prolonged hiccupping, Increased palpitations (irregular heartbeat), Calf discomfort and Uncontrolled pain Meaningful Use Info Meaningful Use Diagnoses (Choose all that apply): None applicable Discharge Plan Admission Admit Date/Time: 03/14/21 23:04 Primary Reason for Your Visit: Acute OPOID withdrawal syndrome Attending Provider: Bryce Unger Primary Care Provider: Care Physician,No Primary Instructions Additional Instructions / Restrictions: Patient Problems: Altered Health Status related to Hospitalization Patient Goals: *Optimal Level of Health *Keep Appointments *Medication Compliance *Remain Safe Discharge Orders/Prescriptions Prescriptions: No Action NK RF: 0 Referrals / Follow Up: Care Physician,No Primary [Primary Care Provider] - Disposition Disposition (needs filled in before D/C Order can be placed): Home, Self Care Charges/Coding Visit Charges Inpatient E&M: [id number] Disch Hosp
--- NOTE | 2021-03-16 10:54 | PHA.DC.MR ---
Pharmacy Service has performed discharge medication reconciliation for this patient. The patient's discharge medication list was reviewed for discrepancies and discrepancies were resolved. Home Medications NK 03/14/21
[2021-03-16 12:39] LABS: Hepatitis B Surface Antigen Non-Reactive (Nonreactive)
[2021-03-16 12:42] LABS: Hepatitis C Antibody REACTIVE (Nonreactive)
[2021-03-18 15:47] LABS: Hepatitis B Core Ab Total Negative (Negative)
== END 2021-03-16 10:54 | disposition home or self-care (01) ==
LOC: ED 20:38 → PCU 23:12
PROVIDERS: Admitting Provider Hospitalist; Emergency Provider Student in an Organized Health Care Education/Training Program; Visit Provider Internal Medicine
DX: F11.23 Opioid dependence with withdrawal (principal); B19.20 Unspecified viral hepatitis C without hepatic coma; F17.210 Nicotine dependence, cigarettes, uncomplicated; D69.6 Thrombocytopenia, unspecified; E44.0 Moderate protein-calorie malnutrition; Z68.1 Body mass index [BMI] 19.9 or less, adult; F15.10 Other stimulant abuse, uncomplicated; F14.10 Cocaine abuse, uncomplicated; E87.6 Hypokalemia; F12.10 Cannabis abuse, uncomplicated
CPT/HCPCS: 36415; 80053; 80307; 82077; 85025; 86704; 86803; 87340; 97802; 99283; 99406; H0012